=== PATIENT | male | born 1955 | race Caucasian/White ===

== ENCOUNTER 2019-06-21 19:15 | Observation (INO) | payer OTHER, SELFPAY ==
[2019-06-21] VITALS (9 sets, daily range): BP systolic 124–149; BP diastolic 81–98; PULSE 51–65; RESP 14–21; TEMP 36.1; O2SAT 96–97; BMI 20.5
--- NOTE | 2019-06-21 19:22 | EKG12_ITS ---
Test Reason : TIA/CVA Blood Pressure : / mmHG Vent. Rate : 058 BPM Atrial Rate : 058 BPM P-R Int : 182 ms QRS Dur : 102 ms QT Int : 422 ms P-R-T Axes : 063 -06 036 degrees QTc Int : 414 ms Sinus bradycardia Otherwise normal ECG Confirmed by JEISON OLVERA, SHERRI ([id number]), electronic news gathering editor GREGOR STEEN ([id number]) on 06/23/2019 10:46:26 AM Referred By: DR NASH Confirmed By:SHERRI MCHUGH MD
[2019-06-21 19:31] LABS: Bedside Glucose 77 mg/dL (70-110)
--- NOTE | 2019-06-21 19:38 | ED.RN ---
PT DROVE HIMSELF TO THE ED. AMBULATED TO ED ROOM.
--- NOTE | 2019-06-21 19:53 | CT_ITS ---
STUDY: CTA OF THE BRAIN REASON FOR EXAM: Male, 63 years old. Left-sided numbness. RADIATION DOSAGE (If Supplied By Facility): CTDIvol = ( 31.66 ) mGy, DLP = ( 1199.83 ) mGycm TECHNIQUE: CT angiography was performed with a multi-detector CT scanner. Data acquisition was obtained from the skull base through the vertex following intravenous administration of 75 IV Isovue 370. MIP images were reconstructed from the axial data set. Post-processing of the angiographic images was performed, with multiplanar reformation and 3D reconstruction. Individualized dose optimization techniques were used for this CT. COMPARISON: None. FINDINGS: Normal bilateral petrous carotid arteries. There is calcified plaque formation of the right cavernous carotid artery, without a cross-sectional luminal stenosis. There is calcified plaque formation of the left cavernous carotid artery, without a cross-sectional luminal stenosis. Normal right A1 segments of the anterior cerebral artery. Normal left A1 segments of the anterior cerebral artery. Normal intact anterior communicating artery (ACOM). Normal bilateral A2 segments of the anterior cerebral arteries. Normal right M1 and M2 segments of the middle cerebral arteries, with a normal M1 bifurcation. Normal left M1 and M2 segments of the middle cerebral arteries, with a normal M1 bifurcation. There is non-visualization of the right posterior communicating artery (PCOM). There is non-visualization of the left posterior communicating artery (PCOM). Normal bilateral vertebral arteries. Normal basilar artery with a normal basilar bifurcation. The visualized bilateral superior cerebellar (SCA) arteries are normal. Normal bilateral P1, P2 and visualized P3 segments of the posterior cerebral arteries. There is no demonstrated aneurysm of the [place]. There is no demonstrated abnormality of the visualized brain. CT/CTA Head W/WO Contrast IMPRESSION: Minimal atherosclerotic changes of the cavernous carotids. Otherwise normal cervical lordosis in neutral cranial arterial system. Electronically Signed: Neel Deras DO at 21:11 EDT Tel [phone], Service support ,
--- NOTE | 2019-06-21 19:54 | ED.DCSUM_ITS ---
- ER Visit Summary Date of Service: 06/21/19 Chief Complaint: Left-sided arm and leg numbness and tingling History of Present Illness: The patient is a 63 M no significant past medical or surgical history. However the patient does not have a physician. States PE last year around 10:00 + onset of left-sided arm and leg numbness and tingling which lasted about 15 minutes and resolved. He woke up this morning he was fine. He said around lunchtime today it occurred at work lasted about an hour. He denies any weakness. But says it is difficult walking due to the numbness in his leg. He said it resolved again and it occurred again this evening around 5:30 PM. He denies any headache. No head trauma. He is never had a stroke or mini stroke. He is on no blood thinners. He denies any weakness. No visual change. No problems with his speech. No prior history. Physical Examination: Vital signs are stable afebrile. Initial blood pressure 140/94. HEENT exam normal. No facial droop. Normal speech. Pupils round reactive light extra motions are intact. Tongue midline. Neck nontender. Lungs clear to auscultation bilaterally. Heart regular rhythm no murmur. Abdomen soft nontender. Remedies moves all 4. Neurovascular intact. He is equal symmetrical 5 out of 5 stick feeder strength. Dorsi plantarflexion intact. Fingertip to nose within normal limits. Subjectively decreased sensation in the left arm and leg but not objectively. Right side is unaffected. His NIH score is 0. Test Results: Normal. Chemistries EKG sinus bradycardia rate of 58 but no acute signs of [place] or ischemia. Chest x-ray chronic changes no acute process read both by myself the radiologist. CTA head neck shows minimal disease but no acute stroke, bleed or mass. Emergency Department Course and Treatment: Patient will undergo screening labs along with a CTA of his head and neck. Currently his NIH score is 0. He is not a TPA candidate. Treatment Plan: Repeat exam at 11:08 PM patient exam is normal. His symptoms are resolved. Currently has no numbness. And I went over all his test. I spoke to the hospitalist he will be observed overnight and obtain MRI tomorrow. Disposition: Admission Impression: Subjective left upper and lower extremity numbness of uncertain etiology This note was generated with [employer] dictation software. It may contain incorrect words, spelling, and punctuation that were not noted in review of the chart prior to signing ED Disposition - Plan for ED Patient: Referrals: Care Physician,No Primary [Primary Care Provider] -
[2019-06-21 19:56] LABS: Absolute Lymphocyte Count 2.52 X10^3/uL (0.83-4.51); Absolute Neutrophil Count 5.9 X10^3/uL (2.0-7.7); Basophil# 0.06 X10^3/uL; Basophil% 0.6 % (0-1); Eosinophil# 0.13 X10^3/uL; Eosinophils% 1.4 % (0-5); Hematocrit 46.3 % (40-54); Hemoglobin 15.7 g/dL (13.0-16.5); Lymphocyte # 2.52 X10^3/ul (4.0); Lymphocyte % 26.8 % (19-41); Mean Corp Hgb Conc 33.9 g/dL (32-36); Mean Corpuscular Hgb 30.3 pg (27.0-32.0); Mean Corpuscular Volume 89.2 fL (80-94); Mean Platelet Vol. 10.6 fl (6.2-12.0); Monocyte# 0.81 X10^3/uL; Monocyte% 8.6 % (0-10); NRBC Flagged by Analyzer 0 % (0-5); Neutrophil # 5.85 X10^3/uL (2.7-7.7); Neutrophil % 62.1 % (47-70); Platelet Count 222 K/mm3 (150-450); RBC Distribution Width CV 15.3 % (11.6-14.6); RBC Distribution Width SD 49.9 fl (35.1-43.9); Red Blood Count 5.19 M/mm3 (4.6-6.2); White Blood Count 9.4 K/mm3 (4.4-11.0)
[2019-06-21] MEDS: 0.9% Normal Saline 1,000 ML 999 ML IV (19:58)
--- NOTE | 2019-06-21 20:05 | RAD_ITS ---
STUDY: X-RAY CHEST REASON FOR EXAM: Male, 63 years old. Numbness and tingling. Neuro symptoms. TECHNIQUE: Single AP portable view of the chest. COMPARISON: None. FINDINGS: The lungs are mildly hyperexpanded. There is no focal mass or infiltrate. There is no demonstrated pleural abnormality. Normal size heart. Normal mediastinum and el. Normal visualized pulmonary arteries. Normal visualized aortic arch and descending thoracic aorta. Mild degenerative changes of the thoracic spine. Normal visualized ribs, clavicles, and shoulders. There is no demonstrated abnormality of the visualized soft tissue structures of the upper abdomen. RAD/Chest 1 View (Portable) IMPRESSION: Degenerative changes, as described above. No demonstrated acute cardiopulmonary process. Electronically Signed: Neel Deras DO at 20:22 EDT Tel [phone], Service support ,
[2019-06-21 20:13] LABS: International Normalized Ratio 0.9; Prothrombin Time (Protime)PT. 12.3 SECONDS (11.7-14.9)
[2019-06-21 20:14] LABS: Partial Thromboplast Time 31.4 Seconds (24.1-36.2)
[2019-06-21 20:22] LABS: Anion Gap 8 (5-15); BUN 13 mg/dL (7-18); BUN/Creat Ratio 14.3 RATIO (10-20); Chloride 108 mmol/L (98-107); Creatinine, Serum 0.91 mg/dL (0.70-1.30); EST Glomerular Filtration Rate 90 mL/min (>60); Est Glom Filt Rate - Afr Amer 108 mL/min (>60); Estimated Creatinine Clearance 89.59 ml/min; Glucose 77 mg/dL (74-106); Potassium 4.1 mmol/L (3.5-5.1); Sodium Level 142 mmol/L (136-145)
[2019-06-22] VITALS (10 sets, daily range): BP systolic 110–145; BP diastolic 67–95; PULSE 48–71; RESP 15–16; TEMP 36.3–36.7; O2SAT 95–96; BMI 20.4
--- NOTE | 2019-06-22 00:02 | PCM.HP.STD ---
Problem List (1) Left sided numbness Status: Acute (2) Smoker Status: Chronic History of Present Illness Date of Admission: 06/22/19 Chief Complaint: transient left sided numbness The patient is a 63 year old male patient with no significant past medical history presents the emergency room after onset of left-sided weakness. Onset of symptoms began last evening and lasted for an hour or so and then resolved he did not seek medical attention at that time. The patient describes feeling weak on his left side leg and arm, the symptoms resumed at lunchtime during the day for about a half an hour and again resolved and once again recurred about 5:00 this evening at which time he sought medical attention. He describes feeling weak and wobbly when this occurred. The patient is a chronic smoker the symptoms have now resolved he has no loss of function neurologically. The patient denies chest pain shortness of breath fevers or chills. CT scan and CT angiogram were negative and chemistry studies were also normal. The patient will be admitted for observation of TIA-like symptoms and MRI of the head will be ordered in the morning] Past Medical History Past Medical History (Chronic Problems): Chronic Problems Smoker (Chronic) Allergies No Known Allergies Allergy (Verified 06/21/19 19:15) Home Medications: Ambulatory Orders Medication Instructions Recorded NK 06/21/19 Smoking Status: Current every day smoker - *Family History Maternal History Items: No pertinent history Review of Systems Constitutional: Denies: Chills, Fever, Weight Change HEENT: Denies: Head Aches, Sinus Congestion, Sinus Drainage Cardiovascular: Denies: Chest Pain, Palpitations Respiratory: Denies: Cough, Shortness of breath at rest, Sputum production Gastrointestinal: Denies: Abdominal Pain, Nausea, Vomiting Genitourinary: Denies: Dysuria Musculoskeletal: Denies: Joint Pain, Joint Tenderness Skin: Denies: Rash, Wounds Neurological: Reports: Focal weakness, Numbness, Tingling Psychiatric: Denies: Anxiety, Depression, Homicidal Ideations, Suicidal Ideations Hematologic/ Lymphatic: Denies: Easy Bruising, Easy Bleeding VTE Information - Inpt Only VTE Present on Admission: No VTE Mechan Device Prophylaxis: None VTE Pharm Prophylaxis ordered?: Yes Patient Problems: Active and Suspected Problems Left sided numbness (Acute) - Physical Exam General: Alert, Oriented x3, Cooperative HEENT: Atraumatic, PERRLA, EOMI, Normocephalic Neck: Supple Lungs: Clear to auscultation, Normal air movement, No rhonchi, No wheeze, No rales Cardiovascular: Regular rate, Regular Rhythm, Normal S1, Normal S2, No murmurs Abdomen: Bowel Sounds Present, Soft, Non Tender Extremities: No edema, Capillary Refill Less than 3 Seconds Skin: No rashes Musculoskeletal: No Tenderness to Palpation of Joints or Extremities Neurological: Cranial nerves II-XII grossly intact Psych/Mental Status: Normal Affect, Appropriate Vital Signs Temp Pulse Resp BP Pulse Ox 97.0 F L 53 L 19 H 129/85 H 97 06/21/19 19:16 06/21/19 23:12 06/21/19 23:12 06/21/19 23:12 06/21/19 23:12 Oxygen Delivery Method Room Air Weight: 163 lb 12.855 oz Body Mass Index (BMI) 20.5 Finger Stick Blood Glucose 77 Laboratory Tests Past 24 Hrs 06/21/19 06/21/19 06/21/19 19:32 19:32 19:32 WBC 9.4 RBC 5.19 Hgb 15.7 Hct 46.3 MCV 89.2 MCH 30.3 MCHC 33.9 RDW Std Deviation 49.9 H RDW Coeff of Ryan 15.3 H Plt Count 222 MPV 10.6 Immature Gran % (Auto) 0.500 Neut % (Auto) 62.1 Lymph % (Auto) 26.8 [place] % (Auto) 8.6 Eos % (Auto) 1.4 Baso % (Auto) 0.6 Absolute Neuts (auto) 5.9 Absolute Lymphs (auto) 2.52 Nucleated RBC % 0 PT 12.3 INR 0.9 APTT 31.4 Sodium 142 Potassium 4.1 Chloride 108 H Carbon Dioxide 26.0 Anion Gap 8 BUN 13 Creatinine 0.91 Estim Creat Clear Calc 89.59 Est GFR (MDRD) Af Amer 108 Est GFR (MDRD) Non-Af 90 BUN/Creatinine Ratio 14.3 Glucose 77 Calcium 9.0 POC Glucose 06/21/19 19:22 POC Glucose 77 Assessment/Plan All Active Problems Left sided numbness (Acute) Plan 1. Left-sided paresthesia that is transient\TIA?neurologic checks per protocol, admit to PCU for observation, MRI in the morning 2. Smoking?cessation strongly encouraged 3. DVT prophylaxis?low molecular weight heparin Code Visit OBSV E&M: 54912 Initial observation care L2
--- NOTE | 2019-06-22 00:34 | MRI_ITS ---
STUDY: MRI BRAIN WITHOUT CONTRAST REASON FOR EXAM: Male, 63 years old. Left arm and leg numbness TECHNIQUE: Standardized multiplanar fat and water weighted pulse sequences were obtained. COMPARISON: None. FINDINGS: Normal size of the ventricles and extra-axial spaces for the patient's age. There are a limited number of small white matter hyperintensities, distributed throughout the deep white matter tracts of the cerebral hemispheres, consistent with mild chronic white matter ischemic changes. There is no evidence for recent intracranial ischemia or other cause of cytotoxic edema on diffusion weighted imaging (DWI). Normal T2* images of the brain without demonstrated susceptibility artifact. There is no demonstrated hemosiderin stain. Normal bilateral basal ganglia. Normal thalami. There is no extra-axial fluid accumulation. Normal flow voids within the major intracranial circulation suggesting patency by spin echo criteria. Normal sella turcica, pituitary gland, infundibular stalk, optic chiasm and hypothalamus. Normal tectal plate and pineal gland. Normal midbrain, gavin and medulla. Normal cerebellum. Normal basal cisterns. Normal bilateral temporal bones. Normal bilateral internal auditory canals. No demonstrated orbital abnormality, within the constraints of a routine brain study. Normal visualized paranasal sinuses. Normal calvarium and skull base. Normal visualized soft tissue structures. Normal visualized upper cervical spine. MRI/Brain without Contrast IMPRESSION: No acute infarct. Electronically Signed: Colette Nichols, at 11:01 EDT Tel , Service support ,
--- NOTE | 2019-06-22 07:17 | CT_ITS ---
STUDY: CTA NECK WITH CONTRAST REASON FOR EXAM: Male, 63 years old. Left-sided weakness RADIATION DOSAGE (If Supplied By Facility): CTDIvol = ( 29.45 ) mGy, DLP = ( 555.85 ) mGycm TECHNIQUE: CT angiography with multi-detector data acquisition was performed from the aortic arch to the skull base following intravenous administration of 100cc IV Isovue 370. MIP images were reconstructed from the axial data set. Post-processing of the angiographic images was performed, with multiplanar reformation and 3D reconstruction. Individualized dose optimization techniques were used for this CT. COMPARISON: None. FINDINGS: AORTIC ARCH: Normal visualized aortic arch. Normal origins of the brachiocephalic, left common carotid, and left subclavian arteries. RIGHT CAROTID ARTERIES: Normal right common carotid artery (CCA). Normal right common carotid bulb. Normal origin of the right internal carotid (ICA) artery without a hemodynamically significant stenosis. Normal visualized cervical portion of the right internal carotid artery. Normal origin of the right external carotid artery (ECA). LEFT CAROTID ARTERIES: Normal left common carotid artery (CCA). There is minimal atherosclerotic plaque formation with minimal narrowing of the left carotid bulb. Minimal atherosclerotic plaque at the origin of the left internal carotid (ICA) artery without a hemodynamically significant stenosis. Normal visualized cervical portion of the left internal carotid artery. Normal origin of the left external carotid artery (ECA). VERTEBRAL ARTERIES: Normal bilateral vertebral arteries. There is extensive paraseptal emphysema at the lung apices. CT/CTA Neck W/WO Contrast IMPRESSION: Minimal atherosclerotic plaque of the left carotid bulb and origin of the left internal carotid artery without significant stenosis. No hemodynamically significant stenosis. Extensive paraseptal emphysema. Electronically Signed: Colette Nichols, at 13:13 EDT Tel , Service support ,
[2019-06-22 07:53] LABS: Absolute Lymphocyte Count 1.74 X10^3/uL (0.83-4.51); Absolute Neutrophil Count 3.6 X10^3/uL (2.0-7.7); Basophil# 0.05 X10^3/uL; Basophil% 0.8 % (0-1); Eosinophil# 0.14 X10^3/uL; Eosinophils% 2.2 % (0-5); Hematocrit 42.7 % (40-54); Hemoglobin 14.3 g/dL (13.0-16.5); Lymphocyte # 1.74 X10^3/ul (4.0); Lymphocyte % 27.2 % (19-41); Mean Corp Hgb Conc 33.5 g/dL (32-36); Mean Corpuscular Hgb 29.7 pg (27.0-32.0); Mean Corpuscular Volume 88.8 fL (80-94); Monocyte# 0.79 X10^3/uL; Monocyte% 12.4 % (0-10); NRBC Flagged by Analyzer 0 % (0-5); Neutrophil # 3.63 X10^3/uL (2.7-7.7); Neutrophil % 56.8 % (47-70); Platelet Count 189 K/mm3 (150-450); RBC Distribution Width CV 15.3 % (11.6-14.6); RBC Distribution Width SD 49.7 fl (35.1-43.9); Red Blood Count 4.81 M/mm3 (4.6-6.2); White Blood Count 6.4 K/mm3 (4.4-11.0)
[2019-06-22 08:09] LABS: AST(SGOT) 9 U/L (15-37); Alanine Aminotransfer ALT/SGPT 17 U/L (16-61); Albumin, Serum 3.1 g/dL (3.2-5.0); Alkaline Phosphatase 64 U/L (45-117); Anion Gap 6 (5-15); BUN 13 mg/dL (7-18); BUN/Creat Ratio 18.2 RATIO (10-20); Calcium,Total 8.5 mg/dL (8.5-10.1); Chloride 111 mmol/L (98-107); Cholesterol 182 mg/dL (200); Creatinine, Serum 0.71 mg/dL (0.70-1.30); EST Glomerular Filtration Rate 119 mL/min (>60); Est Glom Filt Rate - Afr Amer 144 mL/min (>60); Estimated Creatinine Clearance 114.51 ml/min; Glucose 101 mg/dL (74-106); High Density Lipoprotein 43 mg/dL; Protein, Total 6.1 g/dL (6.4-8.2); Sodium Level 143 mmol/L (136-145); Triglycerides 128 mg/dL; Very Low Density Lipoprotein 26 mg/dL (5-40)
[2019-06-22] MEDS: Enoxaparin 40 MG/0.4 ML Syringe SC (08:51)
[2019-06-22] MEDS: Aspirin 81 MG TAB.CHEW PO (08:51)
[2019-06-22] MEDS: 0.9% Normal Saline 1,000 ML 100 ML IV (11:11)
--- NOTE | 2019-06-22 12:18 | CON.PCM_ITS ---
Problem List (1) TIA (transient ischemic attack) Status: Acute Reason for Consult Date of Consultation: 06/22/19 Reason for Consultation: Left sided numbness and weakness History of Present Illness: The patient is a 63 year old M with PMH tobacco abuse admitted with left-sided numbness and weakness episodes. Per patient his symptoms began Friday night 06/20/2019, initially had left-sided numbness and also felt that he had dif ficulty in walking and had left-sided weakness which lasted for about 15 minutes, per patient he went to sleep has symptoms resolved and then later yesterday 06/21/2019 while he was at work at around lunchtime he again had episode of numbness on the left side of the body along with some left-sided weakness which per patient lasted for about an hour before improving and then later again in the evening had a similar episode of left-sided numbness and weakness which later resolved. At present patient denies any headache, dizziness, visual disturbances, speech disturbances, focal motor weakness, s ensory loss or numbness. Per patient he does not take any aspirin at baseline. He lives with his girlfriend, denies any frequent falls, does not need any assistance for his ADLs and does drive. MRI brain done on admission did not show any acute stroke. CTA head/neck did not show any hemodynamically segment stenosis or occlusion. [] Past Medical History Past Medical History (Chronic Problems): Chronic Problems Smoker (Chronic) Allergies No Known Allergies Allergy (Verified 06/21/19 19:15) Home Medications: Ambulatory Orders Medication Instructions Recorded NK 06/21/19 Lives: - - With girlfriend Smoking Status: Current every day smoker Tobacco Use: Cigars Alcohol: None Drugs: None - *Family History Maternal History Items: No pertinent history Review of Systems Constitutional: Reports: - - Complete ROS negative except as documented in HPI Patient Problems: Active and Suspected Problems Left sided numbness (Acute) TIA (transient ischemic attack) (Acute) - Physical Exam General: Alert HEENT: Normocephalic Neck: Supple Lungs: Normal air movement Cardiovascular: Normal S1, Normal S2 Abdomen: Bowel Sounds Present Extremities: No cyanosis Neurological: - - Conscious, alert, CN II through XII grossly intact, power 5 x 5 both upper and lower extremities, no sensory loss, no cerebellar signs, gait deferred, reflexes + B/L B/S/T/K/A, plantars B/L flexor, NIHSS 0 at present, mRS 0 at present Psych/Mental Status: Normal Affect Vital Signs Temp Pulse Resp BP Pulse Ox 98.1 F 71 16 123/67 H 96 06/22/19 08:45 06/22/19 08:45 06/22/19 08:45 06/22/19 08:45 06/22/19 08:45 Oxygen Delivery Method Room Air Weight: 74.1 kg Body Mass Index (BMI) 20.4 Finger Stick Blood Glucose 77 Intake and Output for Last 24 Hours 06/20/19 06/21/19 06/22/19 23:59 23:59 23:59 Intake Total 480 / 480 Balance 480 / 480 Laboratory Tests Past 24 Hrs 06/21/19 06/21/19 06/21/19 19:32 19:32 19:32 WBC 9.4 RBC 5.19 Hgb 15.7 Hct 46.3 MCV 89.2 MCH 30.3 MCHC 33.9 RDW Std Deviation 49.9 H RDW Coeff of Ryan 15.3 H Plt Count 222 MPV 10.6 Immature Gran % (Auto) 0.500 Neut % (Auto) 62.1 Lymph % (Auto) 26.8 [place] % (Auto) 8.6 Eos % (Auto) 1.4 Baso % (Auto) 0.6 Absolute Neuts (auto) 5.9 Absolute Lymphs (auto) 2.52 Nucleated RBC % 0 PT 12.3 INR 0.9 APTT 31.4 Sodium 142 Potassium 4.1 Chloride 108 H Carbon Dioxide 26.0 Anion Gap 8 BUN 13 Creatinine 0.91 Estim Creat Clear Calc 89.59 Est GFR (MDRD) Af Amer 108 Est GFR (MDRD) Non-Af 90 BUN/Creatinine Ratio 14.3 Glucose 77 Calcium 9.0 Total Bilirubin AST ALT Alkaline Phosphatase Total Protein Albumin Globulin Albumin/Globulin Ratio Triglycerides Cholesterol LDL Cholesterol VLDL Cholesterol HDL Cholesterol 06/22/19 06/22/19 06:58 06:58 WBC 6.4 RBC 4.81 Hgb 14.3 Hct 42.7 MCV 88.8 MCH 29.7 MCHC 33.5 RDW Std Deviation 49.7 H RDW Coeff of [place] 15.3 H Plt Count 189 MPV 10.0 Immature Gran % (Auto) 0.600 Neut % (Auto) 56.8 Lymph % (Auto) 27.2 [place] % (Auto) 12.4 H Eos % (Auto) 2.2 Baso % (Auto) 0.8 Absolute Neuts (auto) 3.6 Absolute Lymphs (auto) 1.74 Nucleated RBC % 0 PT INR APTT Sodium 143 Potassium 4.0 Chloride 111 H Carbon Dioxide 26.0 Anion Gap 6 BUN 13 Creatinine 0.71 Estim Creat Clear Calc 114.51 Est GFR (MDRD) Af Amer 144 Est GFR (MDRD) Non-Af 119 BUN/Creatinine Ratio 18.2 Glucose 101 Calcium 8.5 Total Bilirubin 0.30 AST 9 L ALT 17 Alkaline Phosphatase 64 Total Protein 6.1 L Albumin 3.1 L Globulin 3.0 Albumin/Globulin Ratio 1.0 Triglycerides 128 Cholesterol 182 LDL Cholesterol 113 VLDL Cholesterol 26 HDL Cholesterol 43 POC Glucose 06/21/19 19:22 POC Glucose 77 Assessment/Plan All Active Problems Left sided numbness (Acute) TIA (transient ischemic attack) (Acute) The patient is a 63 year old M with H tobacco abuse admitted with left-sided numbness and weakness episodes. Per patient his symptoms began Friday night 06/20/2019, initially had left-sided numbness and also felt that he had difficulty in walking and had left-sided weakness which lasted for about 15 minutes, per patient he went to sleep has symptoms resolved and then later yesterday 06/21/2019 while he was at work at around lunchtime he again had episode of numbness on the left side of the body along with some left-sided weakness which per patient lasted for about an hour before improving and then later again in the evening had a similar episode of left-sided numbness and weakness which later resolved. At present patient denies any headache, dizziness, visual disturbances, speech disturbances, focal motor weakness, sensory loss or numbness. Per patient he does not take any aspirin at baseline. He lives with his girlfriend, denies any frequent falls, does not need any assistance for his ADLs and does drive. MRI brain done on admission did not show any acute stroke. CTA head/neck did not show any hemodynamically segment stenosis or occlusion. Impression Probable TIA Plan ?MRI brain nothing acute ?CTA head/neck no hemodynamically significant stenosis or occlusion ?Aspirin 81 mg p.o. once daily and Plavix 75 mg p.o. once daily for 3 weeks. Dual antiplatelets for 3 weeks, then switch to single antiplatelet with aspirin. Bleeding risk discussed in detail ?Lipitor 40 mg p.o. nightly ?TTE ?LDL 113, HbA1c pending ?Stroke risk factors discussed and stroke education provided ?Long-term goal blood pressure less than 130/80 mmHg and goal HbA1c less than 7% ?PT/OT ?Fall precautions ?GI/DVT prophylaxis ?Further medical management per hospitalist team ?Follow-up with neurology as outpatient in 2 to 3 weeks ?Please call with questions if any ?Thank you for allowing us to part spent in patient's care and management This note has been generated using [employer] dictation software. It may contain incorrect words, spellings and punctuation's which was not noted in the review of the note prior to signing.[] Code Visit Inpatient E&M: 92866 Init Hosp L3
--- NOTE | 2019-06-22 14:25 | CASEMGMT ---
SW completed a PHQ-9 with patient as he had a TIA. He scored a 0 which indicates no depression. Alma FRAZIER MSW
[2019-06-22 15:13] LABS: Hemoglobin A1c 5.5 % (4.2-6.3)
--- NOTE | 2019-06-22 17:21 | DCINST_ITS ---
- Discharge Diagnoses Current Active Problems: Current Active and Chronic Problems Left sided numbness (Acute) Smoker (Chronic) TIA (transient ischemic attack) (Acute) You will use the following diet at home:: Other - low fat Your food should be the consistency of: Regular Your liquids should be the consistency of: Regular/Thin Discharge Activity: Return to Normal Activity Return to work on:: 06/07/19 May resume sexual activity in: No Restrictions Call your doctor if you observe: Fever of 101 or Higher, Shortness of breath, Dizziness, Fainting spells, Swelling in the ankles, Chest pain, - - Numbness or weakness on one side of the body and not the other, slurred speech, difficulty with word finding, sudden changes in vision Instructions: What Is a TIA?, Tips for Quitting Smoking (Cardiovascular), Chronic Lung Disease: Tips for Quitting Smoking, Why Do You Smoke?, Planning to Quit Smoking, Getting Support for Quitting Smoking Additional Instructions: 1. You had a TIA. I have given you some literature that explains what a TIA is. The MRI of your brain did not show a stroke. The CAT scan of the arteries in the head and neck did not show any significant narrowing of the arteries. The best thing that you can do to prevent further TIAs in the future is to stop smoking. He will also need to take an antiplatelet drug to prevent platelet plugs from clogging small arteries. You are going home on aspirin 81 mg daily and Plavix 75 mg daily. He will take the Plavix for 3 weeks and then this will be discontinued and you will be left on one baby aspirin daily. You are also going on home on a lipid-lowering agent called atorvastatin and you will need to take this once daily at bedtime. Your primary care doctor will need to check your liver tests and lipid panel in 6 weeks. The neurologist would like to see you in his office in 2 to 3 weeks. 2. I have given you a prescription for a nicotine patch. If you are not able to quit smoking with the patch we have a smoking cessation program here at the hospital and all you need to do is call the ooperator and ask to be connected to the smoking cessation coordinator. 3. You need to find a primary care physician to follow up with for your routine medical care Pending Tests on Discharge: none Allergies/Adverse Reactions: Allergies No Known Allergies Allergy (Verified 06/21/19 19:15) Medications to take at Discharge Aspirin [Aspirin, Baby] 81 mg PO DAILY@0800 tab.chew 06/22/19 Atorvastatin Calcium [Lipitor] 40 mg PO QHS #30 tab 06/22/19 Clopidogrel Bisulfate [Plavix] 75 mg PO DAILY #21 tab 06/22/19 Nicotine [Nicoderm Cq ([facility])] 14 mg TRANSDERM. DAILY #28 patch 06/22/19 The following prescriptions were given: Atorvastatin Calcium [Lipitor] 40 mg PO QHS #30 tab [id number] Nicotine [Nicoderm Cq ([facility])] 14 mg TRANSDERM. DAILY #28 patch Prescription Printed Clopidogrel Bisulfate [Plavix] 75 mg PO DAILY #21 tab Transmission Status: Pending to [facility] Primary Care Physician: Care Physician,No Primary [Primary Care Provider] - Test Results: Test results from this visit will be discussed in further detail at your follow- up appointment, if applicable. Please Follow Up With: Johny Purcell MD When: 3 weeks Proposed Discharge Date: 06/22/19
--- NOTE | 2019-06-22 17:33 | DS.PCM_ITS ---
Discharge Date and Diagnosis Date of Admission: 06/22/19 Date of Discharge: 06/22/19 - Primary Discharge Diagnosis Active and Suspected Problems Left sided numbness and weakness(Acute) - due to TIA TIA (transient ischemic attack) (Acute) Emphysema/COPD (Suspected) - emphysematous changes in the lung apices on a CT of the neck - Secondary Discharge Diagnosis Chronic Problems Smoker (Chronic) Hyperlipidemia Hospital Course and Treatment Imaging Results: Clinical Impression(s) from Imaging Studies Head CTA 06/21/19 19:53 IMPRESSION: Minimal atherosclerotic changes of the cavernous carotids. Otherwise normal cervical lordosis in neutral cranial arterial system. Electronically Signed: Neel Deras DO at 21:11 EDT Tel [phone], Service support , Chest X-Ray 06/21/19 20:05 IMPRESSION: Degenerative changes, as described above. No demonstrated acute cardiopulmonary process. Electronically Signed: Neel Deras DO at 20:22 EDT Tel [phone], Service support , Brain MRI 06/22/19 00:34 IMPRESSION: No acute infarct. Electronically Signed: Colette Nichols, at 11:01 EDT Tel , Service support , Neck CTA 06/22/19 07:17 IMPRESSION: Minimal atherosclerotic plaque of the left carotid bulb and origin of the left internal carotid artery without significant stenosis. No hemodynamically significant stenosis. Extensive paraseptal emphysema. Electronically Signed: Colette Nichols, at 13:13 EDT Tel , Service support , Laboratory Tests 06/22/19 06/22/19 06/22/19 Range/Units 06:58 06:58 06:58 WBC 6.4 (4.4-11.0) K/mm3 RBC 4.81 (4.6-6.2) M/mm3 Hgb 14.3 (13.0-16.5) g/dL Hct 42.7 (40-54) % MCV 88.8 (80-94) fL MCH 29.7 (27.0-32.0) pg MCHC 33.5 (32-36) g/dL RDW Std Deviation 49.7 H (35.1-43.9) fl RDW Coeff of Ryan 15.3 H (11.6-14.6) % Plt Count 189 (150-450) K/mm3 MPV 10.0 (6.2-12.0) fl Immature Gran % (Auto) 0.600 (0.0-0.9) % Neut % (Auto) 56.8 (47-70) % Lymph % (Auto) 27.2 (19-41) % [place] % (Auto) 12.4 H (0-10) % Eos % (Auto) 2.2 (0-5) % Baso % (Auto) 0.8 (0-1) % Absolute Neuts (auto) 3.6 (2.0-7.7) X10^3/uL Absolute Lymphs (auto) 1.74 (0.83-4.51) X10^3/uL Nucleated RBC % 0 (0-5) % PT (11.7-14.9) SECONDS INR APTT (24.1-36.2) Seconds Sodium 143 (136-145) mmol/L Potassium 4.0 (3.5-5.1) mmol/L Chloride 111 H (98-107) mmol/L Carbon Dioxide 26.0 (21.0-32.0) mmol/L Anion Gap 6 (5-15) BUN 13 (7-18) mg/dL Creatinine 0.71 (0.70-1.30) mg/dL Estim Creat Clear Calc 114.51 ml/min Est GFR (MDRD) Af Amer 144 (>60) mL/min Est GFR (MDRD) Non-Af 119 (>60) mL/min BUN/Creatinine Ratio 18.2 (10-20) RATIO Glucose 101 (74-106) mg/dL Hemoglobin A1c 5.5 (4.2-6.3) % Calcium 8.5 (8.5-10.1) mg/dL Total Bilirubin 0.30 (0.20-1.00) mg/dL AST 9 L (15-37) U/L ALT 17 (16-61) U/L Alkaline Phosphatase 64 (45-117) U/L Total Protein 6.1 L (6.4-8.2) g/dL Albumin 3.1 L (3.2-5.0) g/dL Globulin 3.0 (2.2-4.2) g/dL Albumin/Globulin Ratio 1.0 (0.9-2.4) RATIO Triglycerides 128 ( - 199) mg/dL Cholesterol 182 (200) mg/dL LDL Cholesterol 113 (0-130) mg/dL VLDL Cholesterol 26 (5-40) mg/dL HDL Cholesterol 43 (40 - ) mg/dL POC Glucose (70-110) mg/dL 06/21/19 06/21/19 06/21/19 Range/Units 19:32 19:32 19:32 WBC 9.4 (4.4-11.0) K/mm3 RBC 5.19 (4.6-6.2) M/mm3 Hgb 15.7 (13.0-16.5) g/dL Hct 46.3 (40-54) % MCV 89.2 (80-94) fL MCH 30.3 (27.0-32.0) pg MCHC 33.9 (32-36) g/dL RDW Std Deviation 49.9 H (35.1-43.9) fl RDW Coeff of Ryan 15.3 H (11.6-14.6) % Plt Count 222 (150-450) K/mm3 MPV 10.6 (6.2-12.0) fl Immature Gran % (Auto) 0.500 (0.0-0.9) % Neut % (Auto) 62.1 (47-70) % Lymph % (Auto) 26.8 (19-41) % [place] % (Auto) 8.6 (0-10) % Eos % (Auto) 1.4 (0-5) % Baso % (Auto) 0.6 (0-1) % Absolute Neuts (auto) 5.9 (2.0-7.7) X10^3/uL Absolute Lymphs (auto) 2.52 (0.83-4.51) X10^3/uL Nucleated RBC % 0 (0-5) % PT 12.3 (11.7-14.9) SECONDS INR 0.9 APTT 31.4 (24.1-36.2) Seconds Sodium 142 (136-145) mmol/L Potassium 4.1 (3.5-5.1) mmol/L Chloride 108 H (98-107) mmol/L Carbon Dioxide 26.0 (21.0-32.0) mmol/L Anion Gap 8 (5-15) BUN 13 (7-18) mg/dL Creatinine 0.91 (0.70-1.30) mg/dL Estim Creat Clear Calc 89.59 ml/min Est GFR (MDRD) Af Amer 108 (>60) mL/min Est GFR (MDRD) Non-Af 90 (>60) mL/min BUN/Creatinine Ratio 14.3 (10-20) RATIO Glucose 77 (74-106) mg/dL Hemoglobin A1c (4.2-6.3) % Calcium 9.0 (8.5-10.1) mg/dL Total Bilirubin (0.20-1.00) mg/dL AST (15-37) U/L ALT (16-61) U/L Alkaline Phosphatase (45-117) U/L Total Protein (6.4-8.2) g/dL Albumin (3.2-5.0) g/dL Globulin (2.2-4.2) g/dL Albumin/Globulin Ratio (0.9-2.4) RATIO Triglycerides ( - 199) mg/dL Cholesterol (200) mg/dL LDL Cholesterol (0-130) mg/dL VLDL Cholesterol (5-40) mg/dL HDL Cholesterol (40 - ) mg/dL POC Glucose (70-110) mg/dL 06/21/19 Range/Units 19:22 WBC (4.4-11.0) K/mm3 RBC (4.6-6.2) M/mm3 Hgb (13.0-16.5) g/dL Hct (40-54) % MCV (80-94) fL MCH (27.0-32.0) pg MCHC (32-36) g/dL RDW Std Deviation (35.1-43.9) fl RDW Coeff of Ryan (11.6-14.6) % Plt Count (150-450) K/mm3 MPV (6.2-12.0) fl Immature Gran % (Auto) (0.0-0.9) % Neut % (Auto) (47-70) % Lymph % (Auto) (19-41) % [place] % (Auto) (0-10) % Eos % (Auto) (0-5) % Baso % (Auto) (0-1) % Absolute Neuts (auto) (2.0-7.7) X10^3/uL Absolute Lymphs (auto) (0.83-4.51) X10^3/uL Nucleated RBC % (0-5) % PT (11.7-14.9) SECONDS INR APTT (24.1-36.2) Seconds Sodium (136-145) mmol/L Potassium (3.5-5.1) mmol/L Chloride (98-107) mmol/L Carbon Dioxide (21.0-32.0) mmol/L Anion Gap (5-15) BUN (7-18) mg/dL Creatinine (0.70-1.30) mg/dL Estim Creat Clear Calc ml/min Est GFR (MDRD) Af Amer (>60) mL/min Est GFR (MDRD) Non-Af (>60) mL/min BUN/Creatinine Ratio (10-20) RATIO Glucose (74-106) mg/dL Hemoglobin A1c (4.2-6.3) % Calcium (8.5-10.1) mg/dL Total Bilirubin (0.20-1.00) mg/dL AST (15-37) U/L ALT (16-61) U/L Alkaline Phosphatase (45-117) U/L Total Protein (6.4-8.2) g/dL Albumin (3.2-5.0) g/dL Globulin (2.2-4.2) g/dL Albumin/Globulin Ratio (0.9-2.4) RATIO Triglycerides ( - 199) mg/dL Cholesterol (200) mg/dL LDL Cholesterol (0-130) mg/dL VLDL Cholesterol (5-40) mg/dL HDL Cholesterol (40 - ) mg/dL POC Glucose 77 (70-110) mg/dL Dr. Purcell-neurology Operations: None Procedures: None Summary of Care Provided: The patient is a 63 year old M with no significant past medical history other than tobacco dependence who presented to the emergency department complaining of episodic left side weakness and numbness. The first episode occurred while he was at work and lasted approximately 90 minutes. The numbness and weakness completely resolved but recurred at approximately 5:30 PM on 06/21/2019 and l asted for several hours. Vital signs in the emergency department were temperature 97, pulse rate 65, blood pressure 136/81, respiratory rate 18 and he was 97% saturated on room air. A noncontrasted CT brain in the emergency room revealed no acute findings. CBC was unremarkable. BMP was also unremarkable. He was admitted to a monitored bed on the progressive care unit and the TIA/stroke protocol was initiated. Lipid panel showed a total cholesterol of 182 with an LDL of 113 and an HDL of 43. Hemoglobin A1c was 5.5. MRI of the brain showed no acute findings. CTA of the head and neck showed no significant areas of stenosis and no aneurysms. He was seen in consultation by Dr. Purcell from neurology who recommended dual antiplatelet agents with aspirin and Plavix for 3 weeks and then discontinue Plavix and continue aspirin 81 mg daily. He was started on Lipitor 40 mg nightly for dyslipidemia. Blood pressures were elevated and ranged from 136/81-140 9/98 on the date of admission. Blood pressures the following day ranged from 111/69-149/95. He was not started on an antihypertensive and will defer monitoring of his blood pressure to his primary care physician. Prescri ptions were given for Plavix and atorvastatin at discharge and he was also given a prescription for NicoDerm patch. He did receive smoking cessation counseling while in the hospital. He will follow-up with Dr. Purcell in 3 weeks and he was given a list of local PCPs taking new patients and instructed to get himself established with a primary care physician for routine medical care. PHYSICAL EXAM: GENERAL: alert, oriented X 3, Cooperative, NAD ORAL: moist mucosa, no mucosal lesions, many missing teeth NECK: No JVD, supple, trachea midline LUNGS: CTA, symmetric chest expansion HEART: RRR, Normal S1 and S2, no rub, no gallop ABDOMEN: soft, NT, ND, BS present, no guarding with palpation EXTREMITIES: no edema, no cyanosis, no calf tenderness SKIN: No rashes, no breakdown NEUROLOGIC: no focal neurologic deficits PSYCH: appropriate, normal affect, pleasant This note was generated with [employer] dictation software. It may contain incorrect words, spelling, and punctuation that were not noted in checking the note before signing. - Physical Exam Vital Signs Temp Pulse Resp BP Pulse Ox 98.1 F 54 L 16 111/69 95 06/22/19 12:45 06/22/19 15:24 06/22/19 12:45 06/22/19 12:45 06/22/19 12:45 Oxygen Delivery Method Room Air Weight: 163 lb 5.8 oz Body Mass Index (BMI) 20.4 Finger Stick Blood Glucose 77 Intake and Output for Last 24 Hours 06/20/19 06/21/19 06/22/19 23:59 23:59 23:59 Intake Total 480 / 480 Balance 480 / 480 Laboratory Tests Past 24 Hrs 06/21/19 06/21/19 06/21/19 19:32 19:32 19:32 WBC 9.4 RBC 5.19 Hgb 15.7 Hct 46.3 MCV 89.2 MCH 30.3 MCHC 33.9 RDW Std Deviation 49.9 H RDW Coeff of Ryan 15.3 H Plt Count 222 MPV 10.6 Immature Gran % (Auto) 0.500 Neut % (Auto) 62.1 Lymph % (Auto) 26.8 [place] % (Auto) 8.6 Eos % (Auto) 1.4 Baso % (Auto) 0.6 Absolute Neuts (auto) 5.9 Absolute Lymphs (auto) 2.52 Nucleated RBC % 0 PT 12.3 INR 0.9 APTT 31.4 Sodium 142 Potassium 4.1 Chloride 108 H Carbon Dioxide 26.0 Anion Gap 8 BUN 13 Creatinine 0.91 Estim Creat Clear Calc 89.59 Est GFR (MDRD) Af Amer 108 Est GFR (MDRD) Non-Af 90 BUN/Creatinine Ratio 14.3 Glucose 77 Hemoglobin A1c Calcium 9.0 Total Bilirubin AST ALT Alkaline Phosphatase Total Protein Albumin Globulin Albumin/Globulin Ratio Triglycerides Cholesterol LDL Cholesterol VLDL Cholesterol HDL Cholesterol 06/22/19 06/22/19 06/22/19 06:58 06:58 06:58 WBC 6.4 RBC 4.81 Hgb 14.3 Hct 42.7 MCV 88.8 MCH 29.7 MCHC 33.5 RDW Std Deviation 49.7 H RDW Coeff of Ryan 15.3 H Plt Count 189 MPV 10.0 Immature Gran % (Auto) 0.600 Neut % (Auto) 56.8 Lymph % (Auto) 27.2 [place] % (Auto) 12.4 H Eos % (Auto) 2.2 Baso % (Auto) 0.8 Absolute Neuts (auto) 3.6 Absolute Lymphs (auto) 1.74 Nucleated RBC % 0 PT INR APTT Sodium 143 Potassium 4.0 Chloride 111 H Carbon Dioxide 26.0 Anion Gap 6 BUN 13 Creatinine 0.71 Estim Creat Clear Calc 114.51 Est GFR (MDRD) Af Amer 144 Est GFR (MDRD) Non-Af 119 BUN/Creatinine Ratio 18.2 Glucose 101 Hemoglobin A1c 5.5 Calcium 8.5 Total Bilirubin 0.30 AST 9 L ALT 17 Alkaline Phosphatase 64 Total Protein 6.1 L Albumin 3.1 L Globulin 3.0 Albumin/Globulin Ratio 1.0 Triglycerides 128 Cholesterol 182 LDL Cholesterol 113 VLDL Cholesterol 26 HDL Cholesterol 43 POC Glucose 06/21/19 19:22 POC Glucose 77 Discharge Activity: Return to Normal Activity Return to work on:: 06/07/19 May resume sexual activity in: No Restrictions Call your doctor if you observe: Fever of 101 or Higher, Shortness of breath, Dizziness, Fainting spells, Swelling in the ankles, Chest pain, - - Numbness or weakness on one side of the body and not the other, slurred speech, difficulty with word finding, sudden changes in vision Home Medications: Medications to take at Discharge Aspirin [Aspirin, Baby] 81 mg PO DAILY@0800 tab.chew 06/22/19 Atorvastatin Calcium [Lipitor] 40 mg PO QHS #30 tab 06/22/19 Clopidogrel Bisulfate [Plavix] 75 mg PO DAILY #21 tab 06/22/19 Nicotine [Nicoderm Cq ([facility])] 14 mg TRANSDERM. DAILY #28 patch 06/22/19 Following Prescrptions Were Given to Patient: Atorvastatin Calcium [Lipitor] 40 mg PO QHS #30 tab Transmission Status: Received by [id number] Nicotine [Nicoderm Cq ([facility])] 14 mg TRANSDERM. DAILY #28 patch Prescription Printed Clopidogrel Bisulfate [Plavix] 75 mg PO DAILY #21 tab Transmission Status: Received by [id number] Primary Care Physician: Care Physician,No Primary [Primary Care Provider] - Please Follow Up With: Johny Purcell MD When: 3 weeks Patient Instructions: Tips for Quitting Smoking (Cardiovascular), Chronic Lung Disease: Tips for Quitting Smoking, What Is a TIA?, Why Do You Smoke?, Planning to Quit Smoking, Getting Support for Quitting Smoking Disposition: Home Minutes spent on discharge:: 30 Patient Condition:: Good Medical Necessity - Tobacco Use Smoking Status: Current every day smoker Tobacco Use: Cigars Meaningful Use Info Meaningful Use Diagnoses (Choose all that apply): None applicable Code Visit OBSV E&M: 46778 Observation care discharge
== END 2019-06-22 17:33 | disposition home or self-care (01) ==
LOC: ED 20:09 → PCU 23:55
PROVIDERS: Psychiatry & Neurology Neurology; Admitting Provider Family Medicine; Emergency Provider Emergency Medicine; Visit Provider Internal Medicine
DX: R20.2 Paresthesia of skin (principal); R20.0 Anesthesia of skin; R29.700 NIHSS score 0; R53.1 Weakness; F17.290 Nicotine dependence, other tobacco product, uncomplicated
CPT/HCPCS: 36415; 70496; 70498; 70551; 71045; 80048; 80053; 80061; 82962; 83036; 85025; 85610; 85730; 93005; 96360; 96361; 96372; 97802; 99218; 99285; 99406; J7030; Q9967; A4216; G0378

== ENCOUNTER 2024-04-08 08:23 | Emergency (ER) | payer MEDICARE, SELFPAY ==
[2024-04-08 08:24] VITALS: BP 146/86; PULSE 74; RESP 22; TEMP 36; O2SAT 95; BMI 22.5
--- NOTE | 2024-04-08 08:43 | EKG12_ITS ---
Test Reason : SOB Blood Pressure : / mmHG Vent. Rate : 075 BPM Atrial Rate : 085 BPM P-R Int : 152 ms QRS Dur : 108 ms QT Int : 406 ms P-R-T Axes : 059 020 059 degrees QTc Int : 453 ms Sinus rhythm with marked sinus arrhythmia Otherwise normal ECG Confirmed by Jamal Hummel ([id number]), supervising editor trailer GREGOR STEEN ([id number]) on 04/12/2024 10:12:25 AM Referred By: Confirmed By:Jamal Hummel
--- NOTE | 2024-04-08 08:44 | ED.VIS.DYS ---
HPI History of Present Illness Chief Complaint: Shortness of Breath Detail of Chief Complaint: Shortness of breath Informant: patient Narrative Narrative: Patient presents with cough and congestion and shortness of breath for about a week. He denies fevers or chills. Denies chest pain. Mild exertional dyspnea. Denies sick contacts. Patient does smoke cigars but no history of COPD or emphysema. No history of CHF. Denies recent travel or surgery. [facility] Home Medications ?Medication ?Instructions ?Recorded ?Last Taken ?Type aspirin 81 mg chewable tablet 81 mg PO DAILY@0800 06/22/19 Unknown Rx atorvastatin 40 mg tablet 40 mg PO QHS #30 tabs 06/22/19 Unknown Rx clopidogrel 75 mg tablet 75 mg PO DAILY #21 tabs 06/22/19 Unknown Rx nicotine 14 mg/24 hr daily 14 mg TRANSDERM. DAILY #28 patches 06/22/19 Unknown Rx transdermal patch prednisone 20 mg tablet 20 mg PO BID #10 tabs 04/08/24 Unknown Rx Allergy/AdvReac Type Severity Reaction Status Date / Time No Known Allergies Allergy Verified 04/08/24 08:23 Social History Smoking Status: Current every day smoker tobacco type: cigarettes ROS ROS ED Review of Systems ROS Unobtainable: other Constitutional Constitutional ED: Reports lethargy; Denies chills, fever(s), sweats or weight loss Eyes Eyes: Denies blurry vision, change in vision or diplopia ENT ENT ED: Denies rhinorrhea or sore throat Cardiovascular Cardiovascular: Denies chest pain, orthopnea or racing heartbeat Respiratory/Chest Respiratory/Chest: Reports cough, dyspnea, dyspnea on exertion, sputum and other Details: Clear ; Denies orthopnea Gastrointestinal Gastrointestinal: Denies abdominal pain, diarrhea, nausea or vomiting Genitourinary Genitourinary ED: Denies dysuria, hematuria or urinary frequency Musculoskeletal Musculoskeletal: Denies arthralgias, back pain, myalgias or neck pain Integumentary Denies abscess, Abrasions or rash Neurologic Neurologic: Denies headache(s) or weakness Psychiatric Psychiatric: Denies anxiety, depression or suicidal thoughts Endocrine Endocrinology: Denies polydipsia, polyphagia or polyuria Hematologic/Lymphatic Hematologic/Lymphatic: Denies easy bleeding, easy bruising or lymphadenopathy Allergic/Immunologic Allergic/Immunologic ED: Denies mouth swelling, tongue swelling or urticaria EXAM Physical Exam Const Vital Signs: 04/08/24 08:23 04/08/24 08:24 04/08/24 08:43 Temperature 96.8 F L Temperature Source Temporal Pulse Rate 74 Respiratory Rate 22 H Respiratory Effort Normal Non-Labored Respiratory Depth Normal Respiratory Pattern Normal Blood Pressure 146/86 H Blood Pressure Mean 106 Pulse Ox 95 Oxygen Delivery Method Room Air Room Air Room Air 04/08/24 09:08 04/08/24 09:08 Temperature Temperature Source Pulse Rate 62 Respiratory Rate 18 Respiratory Effort Respiratory Depth Respiratory Pattern Blood Pressure Blood Pressure Mean Pulse Ox 96 Oxygen Delivery Method Room Air Positive well nourished and well developed General Appearance ED: well developed and NAD HEENT Reports TM's clear and moist mucous membranes normocephalic and atraumatic; Negative for trauma or tenderness Tympanic Membrane ED: Yes TM's clear Eyes PERRL and EOMs intact bilaterally General Eye ED: Negative for pale conjunctiva or scleral icterus Neck no lymphadenopathy, supple and no JVD General: Negative for tenderness Chest Wall inspection of chest normal and palpation of chest normal Chest: Negative for tenderness Resp normal respiratory effort and clear to auscultation bilaterally Resp Narrative: Occasional faint expiratory wheezes bilaterally. Mild tachypnea. No mortar man muscle use or retractions. No conversational dyspnea. Effort and Inspection: Negative for respiratory distress or pain with movement Auscultation: wheezes; Negative for rhonchi or diminished lung sounds Cardio regular rate, regular rhythm, S1 normal heart sound, S2 normal heart sound and no murmurs Peripheral Pulses: pulses 2+ throughout GI normal to inspection, nondistended, normoactive bowel sounds, soft to palpation, non-tender, non-distended and no masses Back/Spine no CVA tenderness and no thoracic nor lumbar tenderness Extremity normal to inspection General Extremety ED: Negative for edema General Extremity: Negative for edema Neuro oriented x3, CN's II-XII intact bilaterally, no sensory deficits noted and gait normal Sensorium / Orientation: awake, alert, oriented to person, oriented to place and oriented to time Motor Exam: strength 5/5 throughout and strength abnormal Psych mental status grossly normal Skin no rashes or lesions noted and no wounds MDM MDM MDM Narrative Medical decision making narrative: Cough and congestion for about a week. IV line established. CBC with differential white count 11.4 with hemoglobin 15 and platelet count of 245. Chemistries were unremarkable. Glucose elevated to 71. Troponin was less than 3. EKG obtained arrival showed a sinus rhythm with rate of 75 bpm with occasional PACs. 1 view chest x-ray was unremarkable. COVID flu and RSV testing was negative. Patient was given albuterol and ipratropium aerosol and felt improved afterwards. Will give a dose of prednisone. Will start patient on albuterol and prednisone as I suspect likely an asthmatic bronchitis. Patient advised to follow-up with his primary care physician within next 3 to 5 days. Advised to return if increasing shortness of breath or condition should worsen anyway. Lab Data Attestation: I reviewed the patient's lab results. Labs: Laboratory Results - last 24 hr 04/08/24 09:04 WBC 11.4 H RBC 5.17 Hgb 15.0 Hct 45.9 MCV 88.8 MCH 29.0 MCHC 32.7 RDW Std Deviation 46.2 H RDW Coeff of Ryan 14.3 Plt Count 245 MPV 10.1 Immature Gran % (Auto) 0.600 Neut % (Auto) 81.0 H Lymph % (Auto) 10.1 L [place] % (Auto) 7.0 Eos % (Auto) 0.7 Baso % (Auto) 0.6 Absolute Neuts (auto) 9.2 H Absolute Lymphs (auto) 1.15 Nucleated RBC % 0 Sodium 135 L Potassium 3.7 Chloride 104 Carbon Dioxide 23.0 Anion Gap 8 BUN 9 Creatinine 0.93 Estim Creat Clear Calc 90.33 Est GFR (MDRD) Af Amer 105 Est GFR (MDRD) Non-Af 87 BUN/Creatinine Ratio 9.7 L Glucose 271 H Calcium 9.0 Troponin I High Sens < 3 L Radiography Diagnostic Testing: Clinical Impression(s) from Imaging Studies Chest X-Ray 04/08/24 09:50 IMPRESSION: No radiographic evidence of acute cardiopulmonary disease. Electronically Signed: Armond Khan MD at 10:09 EDT , 1 view chest x-ray obtained interpreted by myself as no evidence of infiltrate or pneumothorax or acute disease process. Radiology in agreement. EKG Initial EKG: Attestation: I personally reviewed and interpreted this EKG as follows: Comments: Sinus rhythm with rate of 75 bpm with occasional PACs Discharge Plan Triage Chief Complaint: Shortness of Breath ED Provider: Marina Youngblood Dx/Rx/DC Orders Clinical Impression: Asthmatic bronchitis Instructions: ED Bronchitis with Wheezing (Adult) Prescriptions: New prednisone 20 mg tablet 20 mg PO BID Qty: 10 0RF No Action atorvastatin 40 MG tablet 40 mg PO QHS Qty: 30 0RF clopidogrel 75 MG tablet 75 mg PO DAILY Qty: 21 0RF aspirin 81 MG tablet,chewable 81 mg PO DAILY@0800 0RF nicotine 14 MG patch 14 mg TRANSDERM. DAILY Qty: 28 0RF Primary Care Provider: Jaxon More Referrals: [facility] Doctor,Out of [Non-Staff] - 3-5 Days Print Language: Wallisian Disposition Disposition: Home, Self Care
[2024-04-08] MEDS: Ipratropium/Albuterol Sulfate 3 ML AMPUL.NEB INHALATION (09:06)
[2024-04-08 09:08] VITALS: PULSE 62; RESP 18; O2SAT 96
[2024-04-08 09:20] LABS: Absolute Lymphocyte Count 1.15 X10^3/uL (0.83-4.51); Absolute Neutrophil Count 9.2 X10^3/uL (2.0-7.7); Basophil# 0.07 X10^3/uL; Basophil% 0.6 % (0-1); Eosinophil# 0.08 X10^3/uL; Eosinophils% 0.7 % (0-5); Hematocrit 45.9 % (40-54); Lymphocyte # 1.15 X10^3/ul (0.83-4.51); Lymphocyte % 10.1 % (19-41); Mean Corp Hgb Conc 32.7 g/dL (32-36); Mean Corpuscular Volume 88.8 fL (80-94); Mean Platelet Vol. 10.1 fl (6.2-12.0); Monocyte# 0.79 X10^3/uL; NRBC Flagged by Analyzer 0 % (0-5); Platelet Count 245 K/mm3 (150-450); RBC Distribution Width CV 14.3 % (11.6-14.6); RBC Distribution Width SD 46.2 fl (35.1-43.9); Red Blood Count 5.17 M/mm3 (4.6-6.2); White Blood Count 11.4 K/mm3 (4.4-11.0)
[2024-04-08 09:38] LABS: Anion Gap 8 (5-15); BUN 9 mg/dL (7-18); BUN/Creat Ratio 9.7 RATIO (10-20); Chloride 104 mmol/L (98-107); Creatinine, Serum 0.93 mg/dL (0.70-1.30); EST Glomerular Filtration Rate 87 mL/min (>60); Est Glom Filt Rate - Afr Amer 105 mL/min (>60); Estimated Creatinine Clearance 90.33 ml/min; Glucose 271 mg/dL (74-106); Potassium 3.7 mmol/L (3.5-5.1); Sodium Level 135 mmol/L (136-145); Troponin-I HS < 3 pg/mL (3.0-78.0)
--- NOTE | 2024-04-08 09:50 | RAD_ITS ---
INDICATION: dyspnea EXAMINATION/TECHNIQUE: X-RAY - XR Chest 1 View COMPARISON: No relevant prior comparison study available FINDINGS: LINES/DEVICES: None. LUNGS: No consolidation, edema or effusion. No pneumothorax. MEDIASTINUM AND CARDIOVASCULAR STRUCTURES: Cardiac silhouette not enlarged. Central airways and mediastinal contour are unremarkable. BONES AND SOFT TISSUES: Old fracture of the posterior right fourth rib. RAD/Chest 1 View (Portable) IMPRESSION: No radiographic evidence of acute cardiopulmonary disease. Electronically Signed: Armond Khan MD at 10:09 EDT ,
[2024-04-08 10:29] VITALS: BP 110/58; PULSE 58; RESP 18; TEMP 36.2; O2SAT 94
[2024-04-08] MEDS: predniSONE 20 MG Tablet 40 MG PO (10:43)
[2024-04-08] MEDS: Albuterol Sulfate 8 gm Inhaler (60 puffs) 2 PUFF INHALATION (10:43)
== END 2024-04-08 10:53 | disposition home or self-care (01) ==
PROVIDERS: Emergency Provider Emergency Medicine; PCP Family Medicine; Visit Provider Emergency Medicine
DX: J45.909 Unspecified asthma, uncomplicated (principal); F17.210 Nicotine dependence, cigarettes, uncomplicated
CPT/HCPCS: 71045; 80048; 84484; 85025; 87040; 87631; 93005; 94640; 99284